=== PATIENT | female | born 1940 | race Caucasian/White ===

== ENCOUNTER → 2016-12-30 | Outpatient (REF) | payer MEDICARE, OTHER ==
[~2016-12-30] MED LIST: ALBU17IN INH; ALBU17IN2 INH; ALBU83IN INH; ASPI81TA85 PO; ATOR40TA75 PO; BREO1INH INH; BYST20TA2 PO; CAND8TAB PO; CINN500C9 PO; FERR1TAB8 PO; OMEP40CA2 PO; OSTETAB3 PO; OXYB5TAB10 PO; RANI15TA PO; SING10TA32 PO; SPIR25TA2 PO; TIOT18INH INH; VITA500046 PO; ZOLO100T PO
== END ==
LOC: M LAB REF 14:50
PROVIDERS: ATTEND Obstetrics & Gynecology
DX: N39.46 Mixed incontinence (principal)

== ENCOUNTER → 2017-01-24 | Outpatient (CLI) | payer MEDICARE, OTHER ==
--- NOTE | 2017-01-24 12:49 | REP ---
PA and lateral chest: Comparisons 07/18/2005. There is increased radiodensity in the lower lung zones bilaterally, likely artifact from superimposed breast parenchyma. There is a stable granuloma superolaterally left upper lobe. This measures 8 mm in diameter and is unchanged. The lung feng otherwise clear. Cardiac size is normal. The lotus and mediastinum are unremarkable. There is thoracic scoliosis convex right. This has increased compared to the prior study. Impression: No acute cardiopulmonary findings. Stable granuloma in the left upper lobe. The increased density in the lower lung zones bilaterally is likely artifact from superimposed breast parenchyma. Signed by Maury Arcos MD 01/24/2017 12:41 P
== END ==
LOC: M SMT 11:25
PROVIDERS: ATTEND Internal Medicine Pulmonary Disease
DX: R05 Cough (principal)

== ENCOUNTER → 2017-02-07 | Outpatient (CLI) | payer MEDICARE, OTHER ==
--- NOTE | 2017-02-07 17:12 | REP ---
MRI BRAIN WITHOUT CONTRAST: HISTORY: Left arm numbness. Areas of increased signal intensity on T2-weighted images are present in the periventricular and subcortical white matter and lupe. This represents small vessel ischemic disease. There is no intraparenchymal hemorrhage, infarct, mass or midline shift. The ventricular system and cortical sulci are dilated consistent with mild volume loss. There is no extracerebral collection. Mucosal thickening is present in the left mastoid air cells. The sinuses are clear. IMPRESSION: 1. Small vessel ischemic disease. 2. Mild volume loss. Signed by Jaren Dumont MD 02/08/2017 08:29 A
== END ==
LOC: M RAD 15:22
PROVIDERS: ATTEND Family Medicine
DX: R20.0 Anesthesia of skin (principal); R53.1 Weakness

== ENCOUNTER 2017-02-28 08:48 | Day surgery (SDC) | payer MEDICARE, OTHER ==
[~2017-02-28] VITALS: Ht 152.4 cm; Wt 74.0 kg
[2017-02-28] MEDS ORDERED: LR 1,000 ML IV SCH ×4 (09:30→14:00)
[2017-02-28] MEDS ORDERED: ONDANSETRON 4MG/2ML VIAL (J2405) As Ordered ONE (09:50)
[2017-02-28] MEDS ORDERED: PROPOFOL 200 MG/20 ML VIAL As Ordered ONE (09:50)
[2017-02-28] MEDS ORDERED: fentaNYL 100 MCG/2 ML INJECTION (J3010) As Ordered ONE (09:50)
[2017-02-28] MEDS ORDERED: LIDOCAINE 2% INJ 100 MG/5 ML SDV (FOR ANES.) As Ordered ONE (09:50)
[2017-02-28] MEDS ORDERED: MIDAZOLAM INJ 2 MG/2 ML VIAL (J2250) As Ordered ONE (09:50)
[2017-02-28] MEDS ORDERED: dexameTHASONE 4 MG/ML 1ML VIAL (J1100) As Ordered ONE (09:50)
[2017-02-28] MEDS ORDERED: AMPICILLIN SOD/SULBACTAM SOD 3 GM in D5W MINI-BAG PLUS 100 ML IV ONE (12:15)
[2017-02-28 12:25] LABS: CREATININE FOR GFR 0.73 MG/DL (0.55-1.02); GLOMERULAR FILTRATION RATE > 60.0 (>39)
[2017-02-28] MEDS ORDERED: BUPIVACAINE HCL 0.5% 30 ML VIAL As Ordered ONE (12:35)
[2017-02-28] MEDS ORDERED: ONDANSETRON 4MG/2ML VIAL (J2405) IV PRN (14:00)
[2017-02-28] MEDS ORDERED: fentaNYL 100 MCG/2 ML INJECTION (J3010) IV PRN (14:00)
[2017-02-28] MEDS ORDERED: ACETAMINOPHEN TAB 650MG DOSE (2X325MG) PO PRN (14:00)
[2017-02-28 15:20] VITALS: BP 193/74
--- NOTE | 2017-02-28 16:09 | RO ---
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 PROCEDURE: Cystourethroscopy with periurethral bulking using Macroplastique. SURGEON: Ni Love MD TIE HACKER: None. ANESTHESIA: Spinal. BRIEF DESCRIPTION OF PROCEDURE AND FINDINGS: Winsome was brought to the operating room where sufficient spinal anesthesia was induced and she was prepped, draped, and positioned in the usual sterile fashion. A few mL of 0.50% Marcaine without were used periurethral local block for postoperative discomfort. We then proceeded to cystourethroscopy showing a normal bladder. In one of the pictures it looks like there is a little hyperemia, but that was not really evident at the time of actual visualization. She really had a normal appearing bladder wall. There did not appear to be undue sacculation or any diverticula. She had normal urethral meati, but the bladder neck was somewhat lax and then the urethra and the area of the valve were just wide open as is sometimes seen in mature individuals with this problem. She had a particularly broad posterior right across at 6-o'clock defect. We went ahead with the Macroplastique and injected at 4-o'clock, 6-o'clock and 7:30. Approximately 1 mL less than 2 ampules of Macroplastique were used. We waited 30 seconds after the injection at each of the three sites and we had good coaptation of the tissues after the final injection as shown in the optic photos. We then emptied the bladder again and ended the case. There were no complications during the procedure. I will say that preoperatively, te patient has hives and swelling to CEPHALOSPORINS and to QUINOLONES and so Cipro was not a preoperative antibiotic option. None of the cephalosporins were a preoperative antibiotic option. She has previously had a creatine as high as 1.1 and she is 76 and hypertensive and so I was quite concerned that giving her gentamicin might pose a significant risk for her kidneys and so a decision was made after discussion with pharmacy and the most appropriate antibiotic choice for her to use Unasyn. She is not allergic to penicillin and this combined antibiotic should offer very good prophylactic coverage for this permanent injection while not endangering her renal function, which I think was a very realistic concern for gentamicin in this patient. Therefore, we did have a slightly atypical antibiotic use due to multiple patient allergies and significant medical history, but there was no reaction whatsoever to the Unasyn and this should provide good coverage for this procedure. There were no complications. She tolerated the procedure well. ESTIMATED BLOOD LOSS: Maybe 1 mL. She had a couple drops at the site of one of the Marcaine injections. CONDITION AND DISPOSITION: Winsome tolerated the procedure well and was recovering in the recovery room in good condition.
== END 2017-02-28 15:24 | disposition home or self-care (01) ==
LOC: M SDC 08:48
PROVIDERS: ATTEND Obstetrics & Gynecology
DX: N36.42 Intrinsic sphincter deficiency (ISD) (principal); N39.3 Stress incontinence (female) (male); I10 Essential (primary) hypertension; J45.909 Unspecified asthma, uncomplicated; E78.00 Pure hypercholesterolemia, unspecified; F43.29 Adjustment disorder with other symptoms; E66.9 Obesity, unspecified; R06.02 Shortness of breath; M12.9 Arthropathy, unspecified; M54.9 Dorsalgia, unspecified; F41.9 Anxiety disorder, unspecified; J44.9 Chronic obstructive pulmonary disease, unspecified; Z88.1 Allergy status to other antibiotic agents; Z88.5 Allergy status to narcotic agent; Z88.8 Allergy status to other drugs, medicaments and biological substances; Z79.899 Other long term (current) drug therapy; Z79.82 Long term (current) use of aspirin; Z86.73 Personal history of transient ischemic attack (TIA), and cerebral infarction without residual deficits; Z90.710 Acquired absence of both cervix and uterus; Z78.0 Asymptomatic menopausal state; Z87.891 Personal history of nicotine dependence; Z96.651 Presence of right artificial knee joint
CPT/HCPCS: 36415; 51715; 82565; J1100; J2250; J2405; J3010; L8606

== ENCOUNTER → 2017-08-10 | Outpatient (REF) | payer MEDICARE, OTHER | LOC: M LAB REF 13:14 | DX: R05 Cough (principal) | CPT/HCPCS: 87186 ==

== ENCOUNTER 2018-06-12 05:55 | Day surgery (SDC) | payer MEDICARE, OTHER ==
[~2018-06-12] VITALS: Ht 152.4 cm; Wt 80.7 kg
[~2018-06-12 05:55] MED LIST changes: +SERT-138; +SPIR-10 PO; -SPIR25TA2 PO
[2018-06-12] MEDS ORDERED: POVIDONE-IODINE 5% OPHTH PREP SOL 30ML As Ordered ONE (06:32)
[2018-06-12] MEDS ORDERED: TOBRADEX OPHTH OINT 3.5 GM As Ordered ONE (06:33)
[2018-06-12] MEDS ORDERED: TETRACAINE 0.5% OPHTH SOLN 4ML As Ordered ONE (06:33)
[2018-06-12] MEDS ORDERED: LIDOCAINE 2% W/EPIN INJ 20ML **PRES FREE As Ordered ONE (06:33)
[2018-06-12] MEDS ORDERED: SODIUM BICARBONATE 8.4% INJ 50MEQ 50 ML VIAL As Ordered ONE (06:37)
[2018-06-12] MEDS ORDERED: LIDOCAINE 3.5 % 1ML OPHTH TOPICAL GEL OU ONE (07:00)
[2018-06-12] MEDS ORDERED: MIDAZOLAM INJ 2 MG/2 ML VIAL (J2250) As Ordered ONE (07:16)
[2018-06-12] MEDS ORDERED: fentaNYL 100 MCG/2 ML INJECTION (J3010) As Ordered ONE (07:17)
[2018-06-12] MEDS ORDERED: PROPOFOL 200 MG/20 ML VIAL As Ordered ONE (07:33)
[2018-06-12 08:25] VITALS: BP 133/60
--- NOTE | 2018-06-12 18:32 | RO ---
DATE OF PROCEDURE: 06/12/2018 PREPROCEDURE DIAGNOSIS: Dermatochalasis both upper lids. POSTPROCEDURE DIAGNOSIS: Dermatochalasis both upper lids. PROCEDURE: Bilateral upper lid blepharoplasties. SURGEON: Mookie Norton MD SOCIAL SCIENCES INSTRUCTOR: None. ANESTHESIA: COMPLICATIONS: None. DESCRIPTION OF PROCEDURE: The patient was brought to the operating room, laid in supine position. The face was prepped and draped in a sterile fashion for bilateral upper lid surgeries. Attention was first diverted to the right lid, and the right upper lid was marked with a sterile marker along the lines of proposed excision of the skin. This was done in both upper lids, following which both upper lids were infiltrated with 2% Lidocaine with 1:100,000 epinephrine. Attention was then diverted to the right eye. With the help of electrocautery, premarked skin was excised. Deeper dissection was carried and medial and lateral fat pads were identified and excised with the help of electrocautery and hemostasis was obtained as necessary. The wound was then closed using #6-0 nylon suture. Exactly the same procedure was done for the left upper lid, following which ice packs were applied and the patient was returned to the recovery room with postoperative instructions.
== END 2018-06-12 08:43 | disposition home or self-care (01) ==
LOC: M SDC 05:55
PROVIDERS: ATTEND Ophthalmology
DX: H02.831 Dermatochalasis of right upper eyelid (principal); H02.834 Dermatochalasis of left upper eyelid; I10 Essential (primary) hypertension; E78.5 Hyperlipidemia, unspecified; K21.9 Gastro-esophageal reflux disease without esophagitis; Z88.1 Allergy status to other antibiotic agents; Z79.51 Long term (current) use of inhaled steroids; Z79.82 Long term (current) use of aspirin; J44.9 Chronic obstructive pulmonary disease, unspecified; F41.9 Anxiety disorder, unspecified; Z86.73 Personal history of transient ischemic attack (TIA), and cerebral infarction without residual deficits; Z87.891 Personal history of nicotine dependence
CPT/HCPCS: 15823; 88302; J2250; J3010